=== PATIENT | male | born 1990 | race Hispanic/Latino ===

== ENCOUNTER 2021-01-31 04:50 | Emergency (ER) | payer OTHER ==
[~2021-01-31] VITALS: Ht 170.2 cm; Wt 93.0 kg
[2021-01-31 05:11] VITALS: BP 137/86
[2021-01-31 06:26] VITALS: BP 126/80
== END 2021-01-31 06:46 | disposition home or self-care (01) ==
LOC: EDH 04:50
DX: S06.0X0A Concussion without loss of consciousness, initial encounter (principal); W22.8XXA Striking against or struck by other objects, initial encounter; Y93.89 Activity, other specified; Y92.89 Other specified places as the place of occurrence of the external cause; Y99.8 Other external cause status
CPT/HCPCS: 70450